=== PATIENT | male | born 1990 | race Hispanic/Latino ===

== ENCOUNTER 2019-12-01 22:11 | Emergency (ER) | payer BC, MEDICAID, SELFPAY ==
[2019-12-02] MEDS ORDERED: Ketorolac Tromethamine 60 MG/2 ML VIAL ONE (01:01)
[2019-12-02] MEDS ORDERED: Diazepam 5 MG TAB ONE (01:01)
[2019-12-02] MEDS ORDERED: Morphine 10 MG/ML VIAL ONE (02:12)
--- NOTE | 2019-12-02 07:41 | RAD ---
Exam: 3 VIEWS LUMBAR SPINE: HISTORY: Back pain. Squatting injury. FINDINGS: 5 lumbar type vertebra. Vertebral body height is maintained. No fracture. Disc space is preserved. Visualized sacrum and bony pelvis is intact. Straightening of lumbar lordosis may be due to patient position or muscle spasm. IMPRESSION: 1. No fracture. 2. Straightening of lumbar lordosis may be due to patient position or muscle spasm. Transcribed Date/Time: 12/02/2019 7:43 AM
== END 2019-12-02 03:05 | disposition home or self-care (01) ==
LOC: ERS 22:11
DX: M54.5 Low back pain (principal)
CPT/HCPCS: 72100; 96372; J1885; J2270